=== PATIENT | female | born 1945 | race Caucasian/White ===

== ENCOUNTER 2017-04-25 21:35 | Emergency (ER) | payer MEDICARE, OTHER ==
[~2017-04-25] VITALS: Ht 157.5 cm; Wt 75.0 kg
[2017-04-25 21:40] VITALS: BP 160/68; PULSE 61; RESP 16; O2SAT 96
--- NOTE | 2017-04-25 21:47 | ED.REPORT ---
HPI-Extremity Problem Upper Date of Service April 25, 2017 ED Provider: Dr. Stewart 71 y/o female with a hx of HTN and DM presents to the ED complaining of a hematoma over the right 3rd and 4th knuckles, onset an hour ago. The pt states she was in a moving RV when she fell and hit her hand on something. She states "There is no pain. It just feels stretched". She denies LOC upon falling. The pt takes Pradaxa Nursing Notes Stated Complaint: R HAND PAIN/ FALL Chief Complaint: Extremity Trauma Nursing Notes Reviewed: Yes Allergies: Coded Allergies: azithromycin (Verified Allergy, Mild, itching, 04/25/17) Scheduled Aspirin (Aspirin) 81 Mg Tablet 81 MG PO QAM Atorvastatin (Lipitor) 40 Mg Tablet 40 MG PO HS Calcium Carbonate (Calcium Carbonate) 600 Mg Tablet 600 MG PO BID Clopidogrel (Clopidogrel) 75 Mg Tablet 75 MG PO QAM Fluoxetine (Fluoxetine) 40 Mg Capsule 40 MG PO QAM Losartan Potassium (Losartan Potassium) 25 Mg Tablet 25 MG PO QAM Melatonin (Melatonin) 10 Mg Tablet 10 MG PO HS Metoprolol Succinate ER (Metoprolol Succinate ER) 25 Mg Tab.er.24h 25 MG PO QAM Ubidecarenone (Coenzyme Q10) 100 Mg Capsule 100 MG PO HS diphenhydrAMINE HCl (Benadryl) 25 Mg Capsule 25 MG PO HS General Time Seen by MD: 21:46 Chief Complaint Hand injury right Hx Obtained From: Patient Arrived By: Walk-in Onset Occurred: 1 - 4 hours ago Symptom Duration: Since onset Caused by: Fall on ground (in an RV) Severity: Current: No pain currently Severity: Maximum: No pain Recent Healthcare: No recent doctor visit Similar Sx Previous: No Past Medical History Past Medical History Reports: Diabetes mellitus, Hypertension Reports: Depression Past Surgical History Cardiac stents Smoking History Unknown if Ever Smoker Social History Other Social History: Good social support Ambulatory Status Independent Review of Systems Reports: Hematoma over right hand Reports: stretched skin over the hematoma Musculoskeletal: Denies: Extremity pain (no right hand pain) Complete sys rev & neg: except as marked. Physical Exam Initial Vital Signs Vital Signs (First) Date Time Temp Pulse Resp B/P Pulse Ox O2 Delivery O2 Flow Rate FiO2 04/25/17 21:40 36.2 61 16 160/68 96 Room Air Initial VS: Reviewed Head / Eyes: Atraumatic, Normocephalic Lower Extremities: Vascular intact, Neuro intact, No swelling, No tenderness Skin: Warm, Dry, No cyanosis Neurologic: Alert, Oriented, Nonfocal General/Constitutional: Awake, Alert, No acute distress, Cooperative Respiratory / Chest: Atraumatic, Breath sounds NL, No respiratory distress Cardiovascular: Heart rate NL, Regular rhythm, Heart sounds NL, No gallop, No murmurs, No rubs Upper Extremity / MS: Atraumatic, Full range of motion, No deformity, Neurologic intact, Vascular intact Wrist / Hand: Atraumatic, Full range of motion, Neurologic intact, Vascular intact Right hand injury. Hematoma over the 3rd and 4th right metacarpal Interpretation & Diagnostics X-Ray Interpretation Xray Interpretation: Result: Negative X-Ray Ordered: Hand right Interpretation / Wet Read by: Wet read ED physician Re-Eval/Medical Decision Med Decision/Clinical Course Hand hematoma without fracture or functional deficit. Not anticoagulated. No other injrues. Compression dressing applied. Re-Evaluation/Progress : Time of Eval: 22:54 Patient Status: Condition improved Re-Evaluation/Progress Note: Rechecked pt. Discussed imaging results and diagnosis. Informed the pt of the plan to discharge. Pt understands and agrees with plan. F/U instructions and RTER warning given. All questions addressed. Counseled Regarding: Diagnosis, Lab results, Need for follow-up, When/why to return to ED Discharge & Departure Impression: Primary Impression: Traumatic hematoma of right hand Encounter type: initial encounter Qualified Code: S60.221A - Contusion of right hand, initial encounter Disposition: Home Discharge Condition All VS Reviewed: Yes Condition: Stable Patient Instructions: Contusions in Adults (ED) Additional Instructions: Emergency Department time we examined U and performed an x-ray. No fracture of the right hand is seen. There is a large bruise and a lump indicating a collection of blood in the soft tissues. This will resolve slowly, keep wrapped in a compressive dressing and elevate when able. Tylenol as needed for pain. Follow with primary care when you return home next week. Return to emergency department for severe pain and hand weakness or numbness in hand. Expect that bruising will track out towards fingers and upper arm with time to not be alarmed by this. Scribe Attestation Portions of this note were transcribed by Oliva Guerra. I, Dr.Slack, personally performed the history, physical exam and medical decision-making;I reviewed and confirmed the accuracy of the information in the transcribed note. Signed by Martin Mendez. 04/25/17 [id number] Ty Stewart MD April 25, 2017 21:47 Oliva Guerra April 25, 2017 21:53
[2017-04-25] MEDS ORDERED: FLUO40CA PO (21:58)
[2017-04-25] MEDS ORDERED: LOSA25TA21 PO (21:58)
[2017-04-25] MEDS ORDERED: METO25TA99 PO (22:04)
[2017-04-25] MEDS ORDERED: CLOP75TA28 PO (22:04)
[2017-04-25] MEDS ORDERED: ASPI-973 PO (22:16)
[2017-04-25] MEDS ORDERED: UBID100C PO (22:23)
[2017-04-25] MEDS ORDERED: DIPH25CA6 PO (22:23)
[2017-04-25] MEDS ORDERED: CALC600T20 PO (22:23)
[2017-04-25] MEDS ORDERED: MELA10TA2 PO (22:23)
[2017-04-25] MEDS ORDERED: LIP40 PO (22:26)
[2017-04-25 23:09] VITALS: BP 148/70; PULSE 62; RESP 17; O2SAT 97
--- NOTE | 2017-04-26 07:43 | DRSVH ---
PROCEDURE: X-RAY RIGHT HAND, MINIMUM THREE VIEWS ([id number]) INDICATIONS: r hand injury TECHNIQUE: 3 views of the hand(s) acquired. COMPARISON: None. FINDINGS: Bones: No fractures or dislocations. Carpal bones are normally aligned. No suspicious bony lesions . Soft tissues: No suspicious soft tissue calcifications. IMPRESSION: No acute fracture. No osseous lesion. If clinical suspicion and/or symptoms persist, fur ther assessment with repeat plainfilms, or advanced imaging (e.g., CT, MRI, or bone scan) may be help ful for further assessment. Dictated by: Colby Garsia M.D. on 04/26/2017 at 7:40 Approved by: Colby Garsia M.D. on 04/26/2017 at 7:41
== END 2017-04-25 23:10 | disposition home or self-care (01) ==
LOC: SED 21:35
DX: S60.221A Contusion of right hand, initial encounter (principal); W01.198A Fall on same level from slipping, tripping and stumbling with subsequent striking against other object, initial encounter; Y93.89 Activity, other specified; Y92.9 Unspecified place or not applicable; Y99.8 Other external cause status; I10 Essential (primary) hypertension; E11.9 Type 2 diabetes mellitus without complications; Z79.82 Long term (current) use of aspirin; Z88.1 Allergy status to other antibiotic agents